=== PATIENT | male | born 1975 | race African-American/Black ===

== ENCOUNTER 2018-08-23 02:27 | Inpatient (IN) ==
[2018-08-23] MEDS ORDERED: SODIUM CHLORIDE 0.9% 1,000 ML IV STA (04:10)
[2018-08-23] MEDS ORDERED: HYDROmorphone 2 MG/1 ML VIAL IV STA ×2 (04:11→04:54)
[2018-08-23] MEDS ORDERED: PROMETHAZINE INJ 25 MG in SODIUM CHLORIDE 0.9% 50 ML IV STA (04:11)
[2018-08-23] MEDS ORDERED: HYDROmorphone 2 MG/1 ML VIAL ONE ×2 (04:16→04:56)
[2018-08-23] MEDS ORDERED: PROMETHAZINE 25 MG/1 ML VIAL ONE (04:16)
[2018-08-23 04:38] LABS: Basophils # 0.1 10*3/uL (0.0-0.2); Basophils % 0.3 % (0.0-0.8); Eosinophils # 0.2 10*3/uL (0.0-0.87); Hematocrit 19.6 VOL% (42.0-52.0); Hemoglobin 6.7 GM/DL (14.0-18.0); Immature Granulocytes % 0.6 %; Immature Granulocytes Absolute 0.12 #; Lymphocytes # 7.8 10*3/uL (1.4-4.0); Mean Corpuscular HGB Conc 34.2 GM/DL (32-36); Mean Corpuscular Hemoglobin 30 PG (27-34); Mean Corpuscular Volume 87.1 FL (87-102); Mean Platelet Volume 10.9 FL (9.6-12.0); Monocytes # 1.2 10*3/uL (0.11-0.8); Monocytes % 6.2 % (1.7-12.7); NRBC # 0.24 10*3/uL; Neutrophils # 10.6 10*3/uL (1.4-7.4); Neutrophils % 52.9 % (38.7-73.9); Platelet Count 233 T/CUMM (130-400); Red Blood Count 2.25 MC/CUMM (3.8-5.5); Red Cell Distribution Width 23.9 % (9.3-17.3)
[2018-08-23 04:56] LABS: Albumin 3.9 G/DL (3.4-5.0); Calcium 8.5 MG/DL (8.5-10.1); Potassium 3.8 MMOL/L (3.5-5.1); Total Protein 7.4 G/DL (6.4-8.3)
[2018-08-23] MEDS ORDERED: SODIUM CHLORIDE 0.9% 1,000 ML IV PRN (06:15)
[2018-08-23] MEDS ORDERED: HYDROmorphone 2 MG/1 ML VIAL IV PRN (06:20)
[2018-08-23] MEDS: FOLIC ACID 1 MG TABLET PO SCH (10:44)
[2018-08-23] MEDS: HYDROXYUREA 500 MG CAPSULE PO SCH ×2 (10:44→20:54)
[2018-08-23] MEDS: ONDANSETRON 4 MG/2 ML VIAL IV PRN ×3 (13:41→20:59)
[2018-08-23] MEDS: oxyCODONE ER 40 MG TABLET PO SCH (13:41)
[2018-08-23] MEDS: SODIUM CHLORIDE 0.45% 1,000 ML IV SCH (16:49)
[2018-08-23] MEDS: HYDROmorphone 2 MG/1 ML VIAL IV PRN ×2 (17:01→20:55)
[2018-08-23] MEDS: oxyCODONE/ACETAMINOPHEN 5-325 MG TABLET PO PRN (19:15)
[2018-08-24] MEDS: HYDROmorphone 2 MG/1 ML VIAL IV PRN ×6 (01:04→23:31)
[2018-08-24] MEDS: ONDANSETRON 4 MG/2 ML VIAL IV PRN ×4 (01:07→19:49)
[2018-08-24] MEDS: oxyCODONE ER 40 MG TABLET PO SCH ×2 (01:58→13:53)
[2018-08-24 04:35] LABS: Basophils # 0.1 10*3/uL (0.0-0.2); Basophils % 0.5 % (0.0-0.8); Eosinophils # 0.5 10*3/uL (0.0-0.87); Eosinophils % 2.5 % (0.00-10.9); Hematocrit 24.8 VOL% (42.0-52.0); Hemoglobin 8.3 GM/DL (14.0-18.0); Immature Granulocytes % 0.6 %; Immature Granulocytes Absolute 0.13 #; Lymphocytes # 11.4 10*3/uL (1.4-4.0); Lymphocytes % 52.1 % (21.2-54.2); Mean Corpuscular HGB Conc 33.5 GM/DL (32-36); Mean Corpuscular Hemoglobin 29 PG (27-34); Mean Corpuscular Volume 87.9 FL (87-102); Mean Platelet Volume 11.1 FL (9.6-12.0); Monocytes # 1.6 10*3/uL (0.11-0.8); Monocytes % 7.4 % (1.7-12.7); NRBC # 0.26 10*3/uL; Neutrophils # 8.1 10*3/uL (1.4-7.4); Neutrophils % 36.9 % (38.7-73.9); Platelet Count 216 T/CUMM (130-400); Red Blood Count 2.82 MC/CUMM (3.8-5.5); White Blood Count 21.9 T/CUMM (4-12)
[2018-08-24 04:59] LABS: Calcium 8.1 MG/DL (8.5-10.1); Osmolality,Calculated 280.3 MOS/KG (273-304); Potassium 4.2 MMOL/L (3.5-5.1)
[2018-08-24 05:09] LABS: Atypical Lymphocytes Few; Eosinophils 5 % (0-10); Lymphocytes 53 % (20-55); Nucleated Red Blood Cells 5 (0-5); Segmented Neutrophils 36 % (50-85); Total Cells Counted 100
[2018-08-24 05:10] LABS: Anisocytosis 1+; Hypochromasia 1+; Microcytosis 1+; Pappenheimer Bodies Few; Polychromasia Slight
[2018-08-24 05:11] LABS: Target Cells Slight
[2018-08-24 05:12] LABS: Ovalocytes Few; Platelet Estimate Normal; Sickle Cells Few
[2018-08-24] MEDS: SODIUM CHLORIDE 0.45% 1,000 ML IV SCH ×2 (05:34→19:46)
[2018-08-24] MEDS: HYDROXYUREA 500 MG CAPSULE PO SCH ×2 (10:56→20:13)
[2018-08-24] MEDS: FOLIC ACID 1 MG TABLET PO SCH (10:56)
[2018-08-24] MEDS: oxyCODONE/ACETAMINOPHEN 5-325 MG TABLET PO PRN (13:54)
[2018-08-24] MEDS: PROMETHAZINE INJ 12.5 MG in SODIUM CHLORIDE 0.9% 50 ML IV PRN ×2 (15:32→23:34)
[2018-08-25] MEDS: oxyCODONE ER 40 MG TABLET PO SCH ×2 (01:19→16:09)
[2018-08-25] MEDS: ONDANSETRON 4 MG/2 ML VIAL IV PRN ×3 (03:46→22:11)
[2018-08-25] MEDS: HYDROmorphone 2 MG/1 ML VIAL IV PRN ×5 (03:48→22:13)
[2018-08-25] MEDS: SODIUM CHLORIDE 0.45% 1,000 ML IV SCH (07:54)
[2018-08-25] MEDS: FOLIC ACID 1 MG TABLET PO SCH (10:23)
[2018-08-25] MEDS: PROMETHAZINE INJ 12.5 MG in SODIUM CHLORIDE 0.9% 50 ML IV PRN ×2 (10:23→17:44)
[2018-08-25] MEDS: HYDROXYUREA 500 MG CAPSULE PO SCH ×2 (10:23→20:07)
[2018-08-26] MEDS: ONDANSETRON 4 MG/2 ML VIAL IV PRN ×2 (03:15→16:20)
[2018-08-26] MEDS: HYDROmorphone 2 MG/1 ML VIAL IV PRN ×5 (03:16→20:34)
[2018-08-26] MEDS: oxyCODONE ER 40 MG TABLET PO SCH ×2 (03:18→15:09)
[2018-08-26 06:33] LABS: Basophils # 0.1 10*3/uL (0.0-0.2); Basophils % 0.4 % (0.0-0.8); Eosinophils # 0.9 10*3/uL (0.0-0.87); Eosinophils % 4.1 % (0.00-10.9); Hematocrit 22.5 VOL% (42.0-52.0); Hemoglobin 7.7 GM/DL (14.0-18.0); Immature Granulocytes % 0.6 %; Immature Granulocytes Absolute 0.13 #; Lymphocytes # 9.2 10*3/uL (1.4-4.0); Lymphocytes % 42.3 % (21.2-54.2); Mean Corpuscular HGB Conc 34.2 GM/DL (32-36); Mean Corpuscular Hemoglobin 30 PG (27-34); Mean Corpuscular Volume 88.2 FL (87-102); Mean Platelet Volume 12.2 FL (9.6-12.0); Monocytes # 1.5 10*3/uL (0.11-0.8); Monocytes % 7.1 % (1.7-12.7); NRBC # 0.25 10*3/uL; Neutrophils # 9.8 10*3/uL (1.4-7.4); Neutrophils % 45.5 % (38.7-73.9); Platelet Count 209 T/CUMM (130-400); Red Blood Count 2.55 MC/CUMM (3.8-5.5); White Blood Count 21.6 T/CUMM (4-12)
[2018-08-26 06:45] LABS: Albumin 3.3 G/DL (3.4-5.0); Bilirubin,Total 1.8 MG/DL (0.2-1.0); Osmolality,Calculated 281.1 MOS/KG (273-304); Potassium 5.1 MMOL/L (3.5-5.1); Total Protein 6.2 G/DL (6.4-8.3)
[2018-08-26 06:54] LABS: Band Neutrophils 1 % (0-10); Elliptocytes Few; Eosinophils 6 % (0-10); Hypochromasia 1+; Lymphocytes 36 % (20-55); Platelet Estimate Adequate; Segmented Neutrophils 49 % (50-85); Sickle Cells 1+; Total Cells Counted 100
[2018-08-26 06:55] LABS: Atypical Lymphocytes Few; Microcytosis Slight; Pappenheimer Bodies Few
[2018-08-26] MEDS: FOLIC ACID 1 MG TABLET PO SCH (09:23)
[2018-08-26] MEDS: HYDROXYUREA 500 MG CAPSULE PO SCH ×2 (09:23→20:37)
[2018-08-26] MEDS: PROMETHAZINE INJ 12.5 MG in SODIUM CHLORIDE 0.9% 50 ML IV PRN ×2 (09:59→19:56)
[2018-08-26] MEDS: SODIUM CHLORIDE 0.45% 1,000 ML IV SCH (15:11)
[2018-08-26] MEDS: oxyCODONE/ACETAMINOPHEN 5-325 MG TABLET PO PRN (19:25)
[2018-08-27] MEDS: oxyCODONE ER 40 MG TABLET PO SCH (01:07)
[2018-08-27] MEDS: ONDANSETRON 4 MG/2 ML VIAL IV PRN ×2 (01:08→06:43)
[2018-08-27] MEDS: HYDROmorphone 2 MG/1 ML VIAL IV PRN ×2 (01:10→06:41)
[2018-08-27] MEDS: oxyCODONE/ACETAMINOPHEN 5-325 MG TABLET PO PRN ×2 (03:55→09:23)
[2018-08-27] MEDS: SODIUM CHLORIDE 0.45% 1,000 ML IV SCH (03:56)
[2018-08-27] MEDS: PROMETHAZINE INJ 12.5 MG in SODIUM CHLORIDE 0.9% 50 ML IV PRN (03:57)
[2018-08-27 07:59] VITALS: BP 108/63
[2018-08-27] MEDS ORDERED: HEPARIN LOCK FLUSH 500 UNIT/5 ML SYRINGE IV ONE (09:18)
[2018-08-27] MEDS: FOLIC ACID 1 MG TABLET PO SCH (09:23)
[2018-08-27] MEDS: HYDROXYUREA 500 MG CAPSULE PO SCH (09:23)
== END 2018-08-27 09:50 | disposition home or self-care (01) | DRG 662 ==
LOC: N.ED 02:27 → N.EDINP 02:27 → SUATTDRO 06:07 → N.EDINP 08:15 → N.4E 08:24
PROVIDERS: ADMIT Internal Medicine; ATTEND Internal Medicine

== ENCOUNTER 2019-08-15 09:26 | Inpatient (IN) ==
[2019-08-15] MEDS ORDERED: ORPHENADRINE 60 MG/2 ML VIAL IV STA (09:43)
[2019-08-15] MEDS ORDERED: KETOROLAC 30 MG/1 ML VIAL IV STA (09:43)
[2019-08-15] MEDS ORDERED: SODIUM CHLORIDE 0.9% 1,000 ML IV STA (09:43)
[2019-08-15 10:46] LABS: Basophils # 0.1 10*3/uL (0.0-0.2); Basophils % 0.2 % (0.0-0.8); Eosinophils # 0.5 10*3/uL (0.0-0.87); Eosinophils % 1.9 % (0.00-10.9); Immature Granulocytes % 0.7 %; Immature Granulocytes Absolute 0.19 #; Lymphocytes # 9.4 10*3/uL (1.4-4.0); Mean Corpuscular HGB Conc 34.7 GM/DL (32-36); Mean Corpuscular Volume 90.1 FL (87-102); Mean Platelet Volume 11.1 FL (9.6-12.0); Monocytes % 6.2 % (1.7-12.7); Platelet Count 220 T/CUMM (130-400); Red Blood Count 1.92 MC/CUMM (3.8-5.5); Red Cell Distribution Width 24.2 % (9.3-17.3)
[2019-08-15 10:53] LABS: Hematocrit 17.3 VOL% (42.0-52.0)
[2019-08-15 10:56] LABS: INR 1.2; PT Patient Result 13.4 SECS (9.6-12.2); Partial Thromboplastin Time 30.5 SECS (20.8-36.0)
[2019-08-15 11:08] LABS: Eosinophils 1 % (0-10); Lymphocytes 40 % (20-55); Macrocytosis Slight; Nucleated Red Blood Cells 2 (0-5); Platelet Estimate Adequate; Polychromasia Slight; Segmented Neutrophils 56 % (50-85); Sickle Cells 2+; Total Cells Counted 100
[2019-08-15 11:09] LABS: Howell-Jolly Bodies Slight; Hypochromasia 1+; Pappenheimer Bodies Slight
[2019-08-15 11:12] LABS: Troponin I < 0.015 NG/ML (0.00-0.045)
[2019-08-15] MEDS ORDERED: MEPERIDINE 25 MG/1 ML VIAL IV STA (11:22)
[2019-08-15 11:24] LABS: Albumin 3.7 G/DL (3.4-5.0); Bilirubin,Total 3.6 MG/DL (0.2-1.0); Calcium 8.1 MG/DL (8.5-10.1); Osmolality,Calculated 279.4 MOS/KG (273-304); Total Protein 6.6 G/DL (6.4-8.3)
[2019-08-15 11:27] LABS: Apearance,Urine CLEAR (Clear); Bilirubin,Urine Negative (Negative); Blood, Urine Small mg/dL (Negative); Glucose,Urine (UA) Negative (Negative); Ketones,Urine Negative (Negative); Mucus,Urine Occasional /LPF (Occasional); Nitrite,Urine Negative (Negative); Protein,Urine Negative; RBC,Urine 1 /HPF (0-4); Urine Color Yellow (Yellow); Urine Specific Gravity 1.009 (1.001-1.035); WBC,Urine <1 /HPF (0-6)
[2019-08-15] MEDS ORDERED: SODIUM CHLORIDE 0.9% 1,000 ML IV PRN (11:40)
[2019-08-15 11:41] LABS: Barbiturates Screen,Urine Negative (Negative); Benzodiazepines Screen,Urine Negative (Negative); Cannabinoid Screen,Urine Negative (Negative); Opiate Screen,Urine Negative (Negative); Phencyclidine Screen,Urine Negative (Negative)
[2019-08-15] MEDS ORDERED: ACETAMINOPHEN 325 MG TABLET PO ONE (12:00)
[2019-08-15] MEDS ORDERED: diphenhydrAMINE 50 MG/1 ML VIAL IV ONE (12:00)
[2019-08-15] MEDS ORDERED: NALOXONE 0.4 MG/ML VIAL IV PRN (13:07)
[2019-08-15] MEDS: LEVOFLOXACIN INJ 500 MG in PREMIX 1 EACH IV SCH (13:28)
[2019-08-15] MEDS: SODIUM CHLORIDE 0.9% 1,000 ML IV SCH ×2 (13:28→20:57)
[2019-08-15] MEDS ORDERED: NICOTINE 21 MG/24 HR PATCH TRANSDERM PRN (13:37)
[2019-08-15] MEDS ORDERED: ENOXAPARIN 40 MG/0.4 ML SYRINGE SUBCUT SCH (14:00)
[2019-08-15] MEDS: PANTOPRAZOLE 40 MG TABLET PO SCH (14:58)
[2019-08-15] MEDS ORDERED: HYDROmorphone 2 MG/1 ML VIAL IV ONE (15:05)
[2019-08-15] MEDS ORDERED: KETOROLAC 30 MG/1 ML VIAL IV SCH (16:00)
[2019-08-15] MEDS: HYDROmorphone PCA 30 MG/30 ML SYRINGE IV SCH (20:48)
[2019-08-15] MEDS ORDERED: HYDROXYUREA 500 MG CAPSULE PO SCH (21:00)
[2019-08-15] MEDS ORDERED: oxyCODONE ER 40 MG TABLET PO SCH (21:00)
[2019-08-16] MEDS: SODIUM CHLORIDE 0.9% 1,000 ML IV SCH ×3 (05:20→21:13)
[2019-08-16 05:36] LABS: Basophils # 0.1 10*3/uL (0.0-0.2); Basophils % 0.3 % (0.0-0.8); Eosinophils # 0.5 10*3/uL (0.0-0.87); Eosinophils % 2.3 % (0.00-10.9); Hematocrit 22.3 VOL% (42.0-52.0); Hemoglobin 7.5 GM/DL (14.0-18.0); Immature Granulocytes % 0.7 %; Immature Granulocytes Absolute 0.15 #; Lymphocytes % 38.6 % (21.2-54.2); Mean Corpuscular HGB Conc 33.6 GM/DL (32-36); Mean Corpuscular Volume 89.9 FL (87-102); Mean Platelet Volume 11.4 FL (9.6-12.0); Monocytes % 7.3 % (1.7-12.7); NRBC # 0.41 10*3/uL; Neutrophils % 50.8 % (38.7-73.9); Platelet Count 179 T/CUMM (130-400); Red Blood Count 2.48 MC/CUMM (3.8-5.5); White Blood Count 20.8 T/CUMM (4-12)
[2019-08-16 05:41] LABS: Albumin 3.5 G/DL (3.4-5.0); Bilirubin,Total 2.8 MG/DL (0.2-1.0); Osmolality,Calculated 283.1 MOS/KG (273-304); Total Protein 6.5 G/DL (6.4-8.3)
[2019-08-16 05:56] LABS: Anisocytosis 1+; Hypochromasia 1+; Microcytosis 1+
[2019-08-16 05:57] LABS: Ovalocytes Few; Pappenheimer Bodies Few; Sickle Cells 2+
[2019-08-16 05:58] LABS: Howell-Jolly Bodies Slight; Platelet Estimate Adequate; Polychromasia Few
[2019-08-16 05:59] LABS: Target Cells Slight
[2019-08-16] MEDS ORDERED: MAGNESIUM SULF RIDER 2 GM in PREMIX 1 EACH IV ONE (08:00)
[2019-08-16 08:16] LABS: Hematocrit 19.9 VOL% (42.0-52.0)
[2019-08-16 08:19] LABS: Hemoglobin 6.6 GM/DL (14.0-18.0)
[2019-08-16] MEDS: FOLIC ACID 1 MG TABLET PO SCH (08:43)
[2019-08-16] MEDS: PANTOPRAZOLE 40 MG TABLET PO SCH (08:43)
[2019-08-16 09:14] LABS: Hemoglobin A1 (Alkaline) 29.3 % (96.5-98.5); Hemoglobin A2 (Alkaline) 3.4 % (1.5-3.5); Hemoglobin S (Alkaline) 67.3 %
[2019-08-16] MEDS: ONDANSETRON 4 MG/2 ML VIAL IV PRN ×2 (10:17→21:13)
[2019-08-16 13:02] LABS: Albumin 3.3 G/DL (3.4-5.0); Bilirubin,Direct 0.67 MG/DL (0.0-0.20); Bilirubin,Indirect 2.2 MG/DL (0.0-1.0); Bilirubin,Total 2.9 MG/DL (0.2-1.0); Total Protein 6.6 G/DL (6.4-8.3)
[2019-08-16 15:39] LABS: Hepatitis B Core IgM Quant 0.07 Index; Hepatitis B Surface Ag Quant < 0.10 Index; Hepatitis B Surface Ag Result Negative (Negative); Hepatitis C Virus Ab Quant 0.07 Index; Hepatitis C Virus Ab Result Negative (Negative)
[2019-08-16] MEDS: LEVOFLOXACIN INJ 500 MG in PREMIX 1 EACH IV SCH (16:12)
[2019-08-16 17:21] LABS: Hematocrit 28.7 VOL% (42.0-52.0); Hemoglobin 9.9 GM/DL (14.0-18.0)
[2019-08-17] MEDS: SODIUM CHLORIDE 0.9% 1,000 ML IV SCH ×2 (04:52→13:20)
[2019-08-17] MEDS: HYDROmorphone PCA 30 MG/30 ML SYRINGE IV SCH (04:53)
[2019-08-17 05:14] LABS: Basophils # 0.1 10*3/uL (0.0-0.2); Basophils % 0.4 % (0.0-0.8); Eosinophils # 0.8 10*3/uL (0.0-0.87); Eosinophils % 3.7 % (0.00-10.9); Hematocrit 27.6 VOL% (42.0-52.0); Hemoglobin 9.2 GM/DL (14.0-18.0); Immature Granulocytes % 0.6 %; Immature Granulocytes Absolute 0.13 #; Lymphocytes # 10.6 10*3/uL (1.4-4.0); Mean Corpuscular HGB Conc 33.3 GM/DL (32-36); Mean Corpuscular Volume 90.5 FL (87-102); Monocytes % 8.5 % (1.7-12.7); NRBC # 0.28 10*3/uL; Neutrophils % 35.8 % (38.7-73.9); Platelet Count 177 T/CUMM (130-400); Red Blood Count 3.05 MC/CUMM (3.8-5.5); Red Cell Distribution Width 19.7 % (9.3-17.3); White Blood Count 20.7 T/CUMM (4-12)
[2019-08-17 05:38] LABS: Albumin 3.4 G/DL (3.4-5.0); Atypical Lymphocytes Few; Band Neutrophils 1 % (0-10); Bilirubin,Total 2.6 MG/DL (0.2-1.0); Calcium 8.4 MG/DL (8.5-10.1); Eosinophils 2 % (0-10); Hypochromasia 1+; Lymphocytes 57 % (20-55); Microcytosis 1+; Nucleated Red Blood Cells 1 (0-5); Osmolality,Calculated 276.5 MOS/KG (273-304); Segmented Neutrophils 35 % (50-85); Total Cells Counted 100; Total Protein 6.7 G/DL (6.4-8.3)
[2019-08-17 05:39] LABS: Albumin 3.5 G/DL (3.4-5.0); Anisocytosis 1+; Bilirubin,Direct 0.65 MG/DL (0.0-0.20); Bilirubin,Indirect 1.9 MG/DL (0.0-1.0); Bilirubin,Total 2.5 MG/DL (0.2-1.0); Calcium 8.2 MG/DL (8.5-10.1); Osmolality,Calculated 278.4 MOS/KG (273-304); Ovalocytes Slight; Polychromasia Slight; Target Cells Slight; Total Protein 6.5 G/DL (6.4-8.3)
[2019-08-17 05:40] LABS: Howell-Jolly Bodies Slight; Pappenheimer Bodies Few; Platelet Estimate Adequate; Sickle Cells 2+
[2019-08-17] MEDS ORDERED: SODIUM POLYSTYRENE SULFATE 15 GM/60 ML BOTTLE PO ONE (07:18)
[2019-08-17] MEDS: FOLIC ACID 1 MG TABLET PO SCH (08:36)
[2019-08-17] MEDS: PANTOPRAZOLE 40 MG TABLET PO SCH (08:36)
[2019-08-17 11:21] VITALS: BP 118/79
[2019-08-17] MEDS: LEVOFLOXACIN INJ 500 MG in PREMIX 1 EACH IV SCH (11:32)
== END 2019-08-17 13:47 | disposition home or self-care (01) | DRG 662 ==
LOC: N.EDINP 09:26 → N.ED 09:26 → N.5E 13:10
PROVIDERS: ADMIT Internal Medicine; ATTEND Internal Medicine

== ENCOUNTER 2019-11-05 18:58 | Inpatient (IN) ==
[2019-11-05 20:05] LABS: Basophils # 0.1 10*3/uL (0.0-0.2); Basophils % 0.3 % (0.0-0.8); Eosinophils # 0.6 10*3/uL (0.0-0.87); Eosinophils % 2.1 % (0.00-10.9); Immature Granulocytes % 0.8 %; Immature Granulocytes Absolute 0.23 #; Lymphocytes # 10.3 10*3/uL (1.4-4.0); Lymphocytes % 35.1 % (21.2-54.2); Mean Corpuscular HGB Conc 34.8 GM/DL (32-36); Mean Corpuscular Volume 88.5 FL (87-102); Mean Platelet Volume 11.4 FL (9.6-12.0); Monocytes % 11.6 % (1.7-12.7); NRBC # 0.43 10*3/uL; Neutrophils % 50.1 % (38.7-73.9); Platelet Count 189 T/CUMM (130-400); Red Blood Count 1.82 MC/CUMM (3.8-5.5); Red Cell Distribution Width 24.3 % (9.3-17.3); White Blood Count 29.5 T/CUMM (4-12)
[2019-11-05 20:07] LABS: Hematocrit 16.1 VOL% (42.0-52.0); Hemoglobin 5.6 GM/DL (14.0-18.0)
[2019-11-05 20:21] LABS: Albumin 3.7 G/DL (3.4-5.0); Bilirubin,Total 3.7 MG/DL (0.2-1.0); Calcium 8.3 MG/DL (8.5-10.1); Osmolality,Calculated 278.7 MOS/KG (273-304); Total Protein 6.9 G/DL (6.4-8.3)
[2019-11-05 20:36] LABS: Anisocytosis Slight; Eosinophils 2 % (0-10); Lymphocytes 42 % (20-55); Microcytosis Slight; Nucleated Red Blood Cells 1 (0-5); Segmented Neutrophils 49 % (50-85); Total Cells Counted 100
[2019-11-05 20:37] LABS: Platelet Estimate Normal; Poikilocytosis 3+; Polychromasia 1+; Reactive Lymphocytes Slight; Schistocytes Few; Sickle Cells 3+; Target Cells Few
[2019-11-05] MEDS ORDERED: SODIUM CHLORIDE 0.9% 1,000 ML IV ONE (21:13)
[2019-11-05] MEDS ORDERED: SODIUM CHLORIDE 0.9% 1,000 ML IV PRN (21:15)
[2019-11-05] MEDS ORDERED: HYDROmorphone 2 MG/1 ML VIAL IV STA (21:17)
[2019-11-05] MEDS ORDERED: ALBUTEROL 2.5 MG/3 ML NEB RESP TX PRN (21:51)
[2019-11-05] MEDS ORDERED: diphenhydrAMINE CAP 25 MG CAPSULE PO PRN (21:51)
[2019-11-05] MEDS ORDERED: DEXTROSE 50% 25 GM/50 ML VIAL IV PRN (21:51)
[2019-11-05] MEDS ORDERED: NICOTINE 21 MG/24 HR PATCH TRANSDERM PRN (21:51)
[2019-11-05] MEDS ORDERED: hydrALAZINE 20 MG/1 ML VIAL IV PRN (21:51)
[2019-11-05] MEDS ORDERED: ACETAMINOPHEN 325 MG TABLET PO PRN (21:51)
[2019-11-05] MEDS ORDERED: ZALEPLON 5 MG CAPSULE PO PRN (21:51)
[2019-11-05] MEDS ORDERED: GLUCAGON 1 MG VIAL IM PRN (21:51)
[2019-11-05] MEDS ORDERED: guaiFENesin/DM ER 600-30 MG TABLET PO PRN (21:51)
[2019-11-05 23:51] LABS: Apearance,Urine CLEAR (Clear); Bilirubin,Urine Negative (Negative); Blood, Urine Moderate mg/dL (Negative); Glucose,Urine (UA) Negative (Negative); Hyaline Casts,Urine 12 /LPF (0-3); Ketones,Urine Negative (Negative); Mucus,Urine Occasional /LPF (Occasional); Nitrite,Urine Negative (Negative); Protein,Urine Negative; RBC,Urine 1 /HPF (0-4); Squamous Epithelial Cell,Urine Occasional /HPF (0-10); Urine Color Amber (Yellow); WBC,Urine <1 /HPF (0-6)
[2019-11-06] MEDS: HYDROmorphone 2 MG/1 ML VIAL IV PRN ×3 (00:38→08:20)
[2019-11-06] MEDS: SODIUM CHLORIDE 0.9% 1,000 ML IV SCH ×3 (00:38→18:44)
[2019-11-06] MEDS: ONDANSETRON 4 MG/2 ML VIAL IV PRN ×3 (00:38→22:57)
[2019-11-06] MEDS ORDERED: PNEUMOCOCCAL VACCINE (13 VALENT) 0.5 ML SYRINGE IM ONE (00:46)
[2019-11-06] MEDS: DOCUSATE SODIUM 100 MG CAPSULE PO SCH ×2 (08:21→20:46)
[2019-11-06] MEDS: PANTOPRAZOLE 40 MG TABLET PO SCH (08:21)
[2019-11-06 09:19] LABS: Basophils # 0.1 10*3/uL (0.0-0.2); Basophils % 0.3 % (0.0-0.8); Eosinophils # 0.6 10*3/uL (0.0-0.87); Eosinophils % 2.9 % (0.00-10.9); Hematocrit 19.2 VOL% (42.0-52.0); Hemoglobin 6.5 GM/DL (14.0-18.0); Immature Granulocytes % 0.6 %; Immature Granulocytes Absolute 0.12 #; Lymphocytes # 8.1 10*3/uL (1.4-4.0); Lymphocytes % 42.6 % (21.2-54.2); Mean Corpuscular HGB Conc 33.9 GM/DL (32-36); Mean Platelet Volume 11.4 FL (9.6-12.0); Monocytes % 10.5 % (1.7-12.7); NRBC # 0.31 10*3/uL; Neutrophils % 43.1 % (38.7-73.9); Platelet Count 138 T/CUMM (130-400); Red Blood Count 2.11 MC/CUMM (3.8-5.5); Red Cell Distribution Width 21.9 % (9.3-17.3); White Blood Count 18.9 T/CUMM (4-12)
[2019-11-06 09:23] LABS: Calcium 7.6 MG/DL (8.5-10.1); Osmolality,Calculated 279.5 MOS/KG (273-304)
[2019-11-06 09:26] LABS: Albumin 3.2 G/DL (3.4-5.0); Bilirubin,Direct 0.72 MG/DL (0.0-0.20); Bilirubin,Indirect 2.4 MG/DL (0.0-1.0); Bilirubin,Total 3.1 MG/DL (0.2-1.0); Total Protein 6.6 G/DL (6.4-8.3)
[2019-11-06] MEDS ORDERED: NALOXONE 0.4 MG/ML VIAL IV PRN (11:54)
[2019-11-06] MEDS ORDERED: ACETAMINOPHEN 325 MG TABLET PO PRN (11:58)
[2019-11-06] MEDS ORDERED: HYDROmorphone PCA 30 MG/30 ML SYRINGE IV SCH (12:00)
[2019-11-06] MEDS ORDERED: SODIUM CHLORIDE 0.9% 1,000 ML IV PRN (14:08)
[2019-11-06] MEDS ORDERED: NICOTINE 14 MG/24 HR PATCH TRANSDERM PRN (14:21)
[2019-11-07] MEDS: ONDANSETRON 4 MG/2 ML VIAL IV PRN ×4 (04:19→20:55)
[2019-11-07 06:04] LABS: Basophils # 0.1 10*3/uL (0.0-0.2); Basophils % 0.4 % (0.0-0.8); Eosinophils # 0.7 10*3/uL (0.0-0.87); Eosinophils % 3.3 % (0.00-10.9); Hematocrit 26.8 VOL% (42.0-52.0); Immature Granulocytes % 0.6 %; Immature Granulocytes Absolute 0.13 #; Lymphocytes # 9.2 10*3/uL (1.4-4.0); Lymphocytes % 42.6 % (21.2-54.2); Mean Corpuscular HGB Conc 34.7 GM/DL (32-36); Mean Corpuscular Volume 90.2 FL (87-102); Monocytes % 10.5 % (1.7-12.7); NRBC # 0.27 10*3/uL; Neutrophils % 42.6 % (38.7-73.9); Platelet Count 166 T/CUMM (130-400); Red Blood Count 2.97 MC/CUMM (3.8-5.5); Red Cell Distribution Width 20.2 % (9.3-17.3); White Blood Count 21.6 T/CUMM (4-12)
[2019-11-07 06:08] LABS: Hemoglobin 9.3 GM/DL (14.0-18.0)
[2019-11-07 06:29] LABS: Hypochromasia 1+; Platelet Estimate Adequate; Sickle Cells 1+
[2019-11-07 06:30] LABS: Howell-Jolly Bodies Slight; Macrocytosis Slight; Pappenheimer Bodies Slight; Polychromasia Slight
[2019-11-07 06:54] LABS: Calcium 8.7 MG/DL (8.5-10.1); Osmolality,Calculated 275.7 MOS/KG (273-304)
[2019-11-07] MEDS: DOCUSATE SODIUM 100 MG CAPSULE PO SCH ×2 (08:19→20:29)
[2019-11-07] MEDS: PANTOPRAZOLE 40 MG TABLET PO SCH (08:19)
[2019-11-07] MEDS: SODIUM CHLORIDE 0.9% 1,000 ML IV SCH ×2 (08:20→17:47)
[2019-11-07] MEDS ORDERED: SODIUM POLYSTYRENE SULFATE 15 GM/60 ML BOTTLE PO STA (08:50)
[2019-11-07] MEDS: PROMETHAZINE 25 MG/1 ML VIAL IM PRN ×2 (11:28→22:43)
[2019-11-07] MEDS ORDERED: HYDROmorphone PCA 30 MG/30 ML SYRINGE IV SCH (12:00)
[2019-11-08] MEDS: SODIUM CHLORIDE 0.9% 1,000 ML IV SCH ×3 (03:46→20:21)
[2019-11-08 07:15] LABS: Basophils # 0.1 10*3/uL (0.0-0.2); Basophils % 0.3 % (0.0-0.8); Eosinophils # 0.9 10*3/uL (0.0-0.87); Eosinophils % 4.3 % (0.00-10.9); Hematocrit 26.2 VOL% (42.0-52.0); Hemoglobin 8.8 GM/DL (14.0-18.0); Immature Granulocytes % 0.6 %; Immature Granulocytes Absolute 0.12 #; Lymphocytes # 7.9 10*3/uL (1.4-4.0); Lymphocytes % 38.3 % (21.2-54.2); Mean Corpuscular HGB Conc 33.6 GM/DL (32-36); Mean Corpuscular Volume 91.3 FL (87-102); Mean Platelet Volume 11.5 FL (9.6-12.0); Monocytes % 10.2 % (1.7-12.7); NRBC # 0.15 10*3/uL; Neutrophils % 46.3 % (38.7-73.9); Platelet Count 150 T/CUMM (130-400); Red Blood Count 2.87 MC/CUMM (3.8-5.5); Red Cell Distribution Width 20.8 % (9.3-17.3); White Blood Count 20.6 T/CUMM (4-12)
[2019-11-08 07:26] LABS: Calcium 8.4 MG/DL (8.5-10.1); Osmolality,Calculated 277.5 MOS/KG (273-304)
[2019-11-08 07:56] LABS: Anisocytosis 2+; Eosinophils 5 % (0-10); Lymphocytes 37 % (20-55); Nucleated Red Blood Cells 2 (0-5); Platelet Estimate Normal; Poikilocytosis 2+; Segmented Neutrophils 46 % (50-85); Sickle Cells 2+; Total Cells Counted 100
[2019-11-08 07:57] LABS: Target Cells Few
[2019-11-08] MEDS ORDERED: SODIUM POLYSTYRENE SULFATE 15 GM/60 ML BOTTLE PO STA (08:09)
[2019-11-08] MEDS: PANTOPRAZOLE 40 MG TABLET PO SCH (09:09)
[2019-11-08] MEDS: DOCUSATE SODIUM 100 MG CAPSULE PO SCH ×2 (09:09→20:33)
[2019-11-08] MEDS: ONDANSETRON 4 MG/2 ML VIAL IV PRN ×3 (10:26→20:21)
[2019-11-08] MEDS: PROMETHAZINE 25 MG/1 ML VIAL IM PRN (14:29)
[2019-11-09] MEDS: ONDANSETRON 4 MG/2 ML VIAL IV PRN (02:37)
[2019-11-09 07:19] LABS: Calcium 8.1 MG/DL (8.5-10.1); Osmolality,Calculated 280.3 MOS/KG (273-304)
[2019-11-09] MEDS: SODIUM CHLORIDE 0.9% 1,000 ML IV SCH (08:04)
[2019-11-09] MEDS ORDERED: SODIUM POLYSTYRENE SULFATE 15 GM/60 ML BOTTLE PO ONE (08:16)
[2019-11-09] MEDS ORDERED: MAGNESIUM SULF RIDER 4 GM in PREMIX 1 EACH IV ONE (09:07)
[2019-11-09] MEDS: PANTOPRAZOLE 40 MG TABLET PO SCH (10:07)
[2019-11-09] MEDS: DOCUSATE SODIUM 100 MG CAPSULE PO SCH (10:07)
[2019-11-09 13:03] VITALS: BP 122/62
== END 2019-11-09 15:45 | disposition home or self-care (01) | DRG 662 ==
LOC: N.ED 18:58 → N.EDINP 21:51 → SUATTDRO 21:51 → N.3E 22:49
PROVIDERS: ADMIT Internal Medicine; ATTEND Family Medicine

== ENCOUNTER 2019-12-19 04:34 | Inpatient (IN) ==
[2019-12-19] MEDS ORDERED: ONDANSETRON 4 MG/2 ML VIAL IV ONE (05:20)
[2019-12-19] MEDS ORDERED: HYDROmorphone 2 MG/1 ML VIAL IV STA (05:20)
[2019-12-19 05:41] LABS: Basophils # 0.1 10*3/uL (0.0-0.2); Basophils % 0.5 % (0.0-0.8); Eosinophils # 0.8 10*3/uL (0.0-0.87); Eosinophils % 3.5 % (0.00-10.9); Hematocrit 18.6 VOL% (42.0-52.0); Immature Granulocytes % 0.5 %; Immature Granulocytes Absolute 0.12 #; Lymphocytes # 10.8 10*3/uL (1.4-4.0); Lymphocytes % 46.7 % (21.2-54.2); Mean Corpuscular HGB Conc 33.3 GM/DL (32-36); Mean Corpuscular Volume 91.2 FL (87-102); Mean Platelet Volume 10.8 FL (9.6-12.0); Monocytes % 7.4 % (1.7-12.7); NRBC # 0.17 10*3/uL; Neutrophils % 41.4 % (38.7-73.9); Platelet Count 222 T/CUMM (130-400); Red Blood Count 2.04 MC/CUMM (3.8-5.5); Red Cell Distribution Width 18.8 % (9.3-17.3); White Blood Count 23.2 T/CUMM (4-12)
[2019-12-19 05:47] LABS: Hemoglobin 6.2 GM/DL (14.0-18.0)
[2019-12-19 05:54] LABS: Albumin 3.5 G/DL (3.4-5.0); Bilirubin,Total 2.3 MG/DL (0.2-1.0); Calcium 8.5 MG/DL (8.5-10.1); Osmolality,Calculated 277.7 MOS/KG (273-304); Total Protein 6.9 G/DL (6.4-8.3)
[2019-12-19 06:52] LABS: Apearance,Urine CLEAR (Clear); Bilirubin,Urine Negative (Negative); Blood, Urine Small mg/dL (Negative); Glucose,Urine (UA) Negative (Negative); Ketones,Urine Negative (Negative); Mucus,Urine Occasional /LPF (Occasional); Nitrite,Urine Negative (Negative); Protein,Urine Negative; RBC,Urine <1 /HPF (0-4); Urine Color Yellow (Yellow); Urine Specific Gravity 1.009 (1.001-1.035); WBC,Urine <1 /HPF (0-6)
[2019-12-19 07:25] LABS: Eosinophils 1 % (0-10); Lymphocytes 40 % (20-55); Segmented Neutrophils 55 % (50-85); Total Cells Counted 100
[2019-12-19 07:26] LABS: Platelet Estimate Normal
[2019-12-19 07:27] LABS: Acanthocytes 2+; Anisocytosis 2+; Hypochromasia 3+; Macrocytosis 2+; Microcytosis 1+; Ovalocytes 2+
[2019-12-19 07:28] LABS: Target Cells 1+
[2019-12-19] MEDS ORDERED: GLUCAGON 1 MG VIAL IM PRN (08:38)
[2019-12-19] MEDS ORDERED: DEXTROSE 10% 250 ML BAG IV PRN (08:38)
[2019-12-19] MEDS ORDERED: SODIUM CHLORIDE 0.9% 1,000 ML IV PRN (09:12)
[2019-12-19] MEDS: SODIUM CHLORIDE 0.45% 1,000 ML IV SCH ×2 (11:07→17:13)
[2019-12-19] MEDS: HYDROmorphone 2 MG/1 ML VIAL IV PRN ×3 (11:20→19:23)
[2019-12-19] MEDS: NICOTINE 21 MG/24 HR PATCH TRANSDERM SCH (11:48)
[2019-12-19 19:07] LABS: Hematocrit 24.5 VOL% (42.0-52.0)
[2019-12-19] MEDS: ONDANSETRON 4 MG/2 ML VIAL IV PRN (19:24)
[2019-12-20] MEDS: SODIUM CHLORIDE 0.45% 1,000 ML IV SCH ×4 (00:32→23:10)
[2019-12-20] MEDS: HYDROmorphone 2 MG/1 ML VIAL IV PRN ×3 (00:34→08:38)
[2019-12-20 07:01] LABS: Basophils # 0.1 10*3/uL (0.0-0.2); Basophils % 0.4 % (0.0-0.8); Eosinophils # 0.7 10*3/uL (0.0-0.87); Eosinophils % 3.2 % (0.00-10.9); Hematocrit 24.1 VOL% (42.0-52.0); Immature Granulocytes % 0.4 %; Immature Granulocytes Absolute 0.09 #; Lymphocytes # 11.6 10*3/uL (1.4-4.0); Lymphocytes % 51.8 % (21.2-54.2); Mean Corpuscular HGB Conc 33.2 GM/DL (32-36); Mean Corpuscular Volume 92.3 FL (87-102); Mean Platelet Volume 11.5 FL (9.6-12.0); Monocytes % 6.4 % (1.7-12.7); NRBC # 0.13 10*3/uL; Neutrophils % 37.8 % (38.7-73.9); Platelet Count 188 T/CUMM (130-400); Red Cell Distribution Width 17.7 % (9.3-17.3); White Blood Count 22.4 T/CUMM (4-12)
[2019-12-20 07:20] LABS: Red Blood Count 2.61 MC/CUMM (3.8-5.5)
[2019-12-20 07:27] LABS: Calcium 8.5 MG/DL (8.5-10.1)
[2019-12-20 07:49] LABS: Albumin 3.3 G/DL (3.4-5.0); Bilirubin,Direct 0.48 MG/DL (0.0-0.20); Bilirubin,Indirect 1.8 MG/DL (0.0-1.0); Bilirubin,Total 2.3 MG/DL (0.2-1.0); Total Protein 6.6 G/DL (6.4-8.3)
[2019-12-20 07:50] LABS: Band Neutrophils 2 % (0-10); Eosinophils 1 % (0-10); Lymphocytes 58 % (20-55); Nucleated Red Blood Cells 2 (0-5); Segmented Neutrophils 32 % (50-85); Total Cells Counted 100
[2019-12-20 07:51] LABS: Anisocytosis 2+; Ovalocytes Few; Platelet Estimate Normal; Poikilocytosis 1+
[2019-12-20 07:52] LABS: Polychromasia Slight
[2019-12-20 07:53] LABS: Macrocytosis Slight
[2019-12-20] MEDS: ONDANSETRON 4 MG/2 ML VIAL IV PRN ×2 (08:38→19:27)
[2019-12-20] MEDS: NICOTINE 21 MG/24 HR PATCH TRANSDERM SCH (08:38)
[2019-12-20] MEDS ORDERED: NON-FORMULARY MEDICATION (Oxycodone-Acetaminophen 1 TABLET) PO PRN (10:10)
[2019-12-20] MEDS ORDERED: SODIUM CHLORIDE 0.9% 1,000 ML IV PRN (10:11)
[2019-12-20] MEDS ORDERED: NALOXONE 0.4 MG/ML VIAL IV PRN (10:11)
[2019-12-20] MEDS ORDERED: OXYCODONE 80 MG PO SCH (10:15)
[2019-12-20] MEDS ORDERED: HYDROmorphone 2 MG/1 ML VIAL IV ONE (10:20)
[2019-12-20] MEDS ORDERED: HYDROmorphone PCA 30 MG/30 ML SYRINGE IV SCH (10:30)
[2019-12-20] MEDS: LEVOFLOXACIN 750 MG TABLET PO SCH (10:57)
[2019-12-21] MEDS: ONDANSETRON 4 MG/2 ML VIAL IV PRN (03:27)
[2019-12-21] MEDS: SODIUM CHLORIDE 0.45% 1,000 ML IV SCH ×2 (07:11→09:12)
[2019-12-21 07:16] LABS: Hematocrit 24.3 VOL% (42.0-52.0); Hemoglobin 8.2 GM/DL (14.0-18.0)
[2019-12-21 07:28] LABS: Basophils # 0.1 10*3/uL (0.0-0.2); Basophils % 0.5 % (0.0-0.8); Eosinophils % 4.1 % (0.00-10.9); Hematocrit 24.8 VOL% (42.0-52.0); Hemoglobin 8.3 GM/DL (14.0-18.0); Immature Granulocytes % 0.4 %; Immature Granulocytes Absolute 0.09 #; Lymphocytes # 12.7 10*3/uL (1.4-4.0); Lymphocytes % 53.8 % (21.2-54.2); Mean Corpuscular HGB Conc 33.5 GM/DL (32-36); Mean Corpuscular Volume 92.2 FL (87-102); Mean Platelet Volume 11.3 FL (9.6-12.0); Monocytes % 6.8 % (1.7-12.7); NRBC # 0.16 10*3/uL; Neutrophils % 34.4 % (38.7-73.9); Platelet Count 203 T/CUMM (130-400); Red Blood Count 2.69 MC/CUMM (3.8-5.5); Red Cell Distribution Width 17.8 % (9.3-17.3); White Blood Count 23.6 T/CUMM (4-12)
[2019-12-21 07:46] LABS: Eosinophils 4 % (0-10); Hypochromasia 1+; Lymphocytes 57 % (20-55); Microcytosis 1+; Ovalocytes Slight; Platelet Estimate Adequate; Segmented Neutrophils 34 % (50-85); Sickle Cells Few; Total Cells Counted 100
[2019-12-21] MEDS ORDERED: DEFERASIROX PO SCH (08:00)
[2019-12-21] MEDS ORDERED: FOLIC ACID 1 MG TABLET PO SCH (09:00)
[2019-12-21] MEDS: NICOTINE 21 MG/24 HR PATCH TRANSDERM SCH (09:14)
[2019-12-21] MEDS ORDERED: HYDROmorphone PCA 30 MG/30 ML SYRINGE IV SCH (10:30)
[2019-12-21] MEDS ORDERED: MAGNESIUM OXIDE 400 MG TABLET PO ONE (10:45)
[2019-12-21] MEDS: LEVOFLOXACIN 750 MG TABLET PO SCH (11:29)
[2019-12-21 11:33] VITALS: BP 111/65
[2019-12-22] MEDS ORDERED: oxyCODONE ER 20 MG TABLET PO SCH (09:00)
[2019-12-22] MEDS ORDERED: oxyCODONE/ACETAMINOPHEN 5-325 MG TABLET PO PRN (09:00)
== END 2019-12-21 13:30 | disposition home or self-care (01) | DRG 662 ==
LOC: N.ED 04:34 → N.EDINP 08:38 → SUATTDRO 08:38 → N.3E 09:04
PROVIDERS: ADMIT Internal Medicine; ATTEND Internal Medicine

== ENCOUNTER 2020-02-11 16:40 | Observation (INO) ==
[2020-02-11] MEDS ORDERED: SODIUM CHLORIDE 0.9% 1,000 ML IV STA (18:25)
[2020-02-11 18:46] LABS: Basophils # 0.1 10*3/uL (0.0-0.2); Basophils % 0.4 % (0.0-0.8); Eosinophils # 0.5 10*3/uL (0.0-0.87); Eosinophils % 1.9 % (0.00-10.9); Hematocrit 18.5 VOL% (42.0-52.0); Immature Granulocytes % 0.6 %; Immature Granulocytes Absolute 0.16 #; Lymphocytes % 51.2 % (21.2-54.2); Mean Corpuscular HGB Conc 33.5 GM/DL (32-36); Mean Corpuscular Volume 89.4 FL (87-102); Mean Platelet Volume 11.8 FL (9.6-12.0); Monocytes % 7.1 % (1.7-12.7); NRBC # 0.37 10*3/uL; Neutrophils % 38.8 % (38.7-73.9); Platelet Count 191 T/CUMM (130-400); Red Blood Count 2.07 MC/CUMM (3.8-5.5); Red Cell Distribution Width 21.3 % (9.3-17.3); White Blood Count 27.3 T/CUMM (4-12)
[2020-02-11 18:50] LABS: Hemoglobin 6.2 GM/DL (14.0-18.0)
[2020-02-11 19:04] LABS: Albumin 3.8 G/DL (3.4-5.0); Bilirubin,Total 2.7 MG/DL (0.2-1.0); Calcium 8.7 MG/DL (8.5-10.1); Ferritin 6781.4 ng/ml (26-388); Total Protein 7.5 G/DL (6.4-8.3)
[2020-02-11] MEDS ORDERED: ONDANSETRON 4 MG/2 ML VIAL IV ONE (19:08)
[2020-02-11] MEDS ORDERED: fentaNYL 100 MCG/2 ML VIAL IV STA (19:08)
[2020-02-11 19:17] LABS: Anisocytosis 1+; Lymphocytes 46 % (20-55); Macrocytosis 1+; Microcytosis 1+; Nucleated Red Blood Cells 1 (0-5); Platelet Estimate Normal; Poikilocytosis 2+; Polychromasia 1+; Segmented Neutrophils 50 % (50-85); Sickle Cells 2+; Total Cells Counted 100
[2020-02-11] MEDS ORDERED: NALOXONE 0.4 MG/ML VIAL IV PRN (19:23)
[2020-02-11] MEDS ORDERED: SODIUM CHLORIDE 0.9% 1,000 ML IV PRN (19:23)
[2020-02-11] MEDS ORDERED: GLUCAGON 1 MG VIAL IM PRN (19:24)
[2020-02-11] MEDS ORDERED: DEXTROSE 50% 25 GM/50 ML VIAL IV PRN (19:24)
[2020-02-11] MEDS ORDERED: HYDROmorphone 2 MG/1 ML VIAL ONE (19:26)
[2020-02-11] MEDS ORDERED: HYDROmorphone 2 MG/1 ML VIAL IV STA (19:34)
[2020-02-11 19:45] LABS: Bilirubin,Urine Negative (Negative); Blood, Urine Small mg/dL (Negative); Glucose,Urine (UA) Negative (Negative); Hyaline Casts,Urine 10 /LPF (0-3); Ketones,Urine Negative (Negative); Mucus,Urine Occasional /LPF (Occasional); Nitrite,Urine Negative (Negative); Protein,Urine Negative; RBC,Urine 2 /HPF (0-4); Squamous Epithelial Cell,Urine Occasional /HPF (0-10); Urine Appearance CLEAR (Clear); Urine Color Amber (Yellow); Urine Specific Gravity 1.012 (1.001-1.035); WBC,Urine 2 /HPF (0-6)
[2020-02-11] MEDS ORDERED: AZITHROMYCIN INJ 500 MG in SODIUM CHLORIDE 0.9% 250 ML IV ONE (20:16)
[2020-02-11] MEDS ORDERED: LEVOFLOXACIN INJ 150 ML IV ONE (21:27)
[2020-02-11] MEDS: LEVOFLOXACIN INJ 750 MG in PREMIX 1 EACH IV SCH (21:43)
[2020-02-11] MEDS: SODIUM CHLORIDE 0.45% 1,000 ML IV SCH (21:43)
[2020-02-11] MEDS ORDERED: HYDROmorphone PCA 30 MG/30 ML SYRINGE IV SCH (22:00)
[2020-02-12 05:41] LABS: Basophils # 0.1 10*3/uL (0.0-0.2); Basophils % 0.3 % (0.0-0.8); Eosinophils # 0.7 10*3/uL (0.0-0.87); Eosinophils % 2.7 % (0.00-10.9); Immature Granulocytes % 0.5 %; Immature Granulocytes Absolute 0.14 #; Lymphocytes # 14.9 10*3/uL (1.4-4.0); Lymphocytes % 55.2 % (21.2-54.2); Mean Corpuscular HGB Conc 34.4 GM/DL (32-36); Mean Corpuscular Volume 89.3 FL (87-102); Monocytes % 7.7 % (1.7-12.7); NRBC # 0.27 10*3/uL; Neutrophils % 33.6 % (38.7-73.9); Platelet Count 176 T/CUMM (130-400); Red Blood Count 1.69 MC/CUMM (3.8-5.5); Red Cell Distribution Width 20.6 % (9.3-17.3); White Blood Count 26.9 T/CUMM (4-12)
[2020-02-12 06:01] LABS: Calcium 8.4 MG/DL (8.5-10.1); Osmolality,Calculated 278.5 MOS/KG (273-304)
[2020-02-12 06:08] LABS: Hematocrit 15.1 VOL% (42.0-52.0); Hemoglobin 5.2 GM/DL (14.0-18.0)
[2020-02-12] MEDS ORDERED: SODIUM CHLORIDE 0.9% 1,000 ML IV PRN (06:11)
[2020-02-12 06:39] LABS: Band Neutrophils 1 % (0-10); Eosinophils 5 % (0-10); Lymphocytes 59 % (20-55); Nucleated Red Blood Cells 4 (0-5); Segmented Neutrophils 31 % (50-85); Total Cells Counted 100
[2020-02-12 06:40] LABS: Anisocytosis 1+; Hypochromasia 1+; Microcytosis 1+; Ovalocytes Few; Sickle Cells 1+
[2020-02-12 06:41] LABS: Howell-Jolly Bodies Slight; Pappenheimer Bodies Slight; Polychromasia Slight; Smudge Cells Few; Target Cells Slight
[2020-02-12] MEDS: SODIUM CHLORIDE 0.45% 1,000 ML IV SCH ×2 (06:44→14:44)
[2020-02-12] MEDS ORDERED: ENOXAPARIN 40 MG/0.4 ML SYRINGE SUBCUT SCH (09:00)
[2020-02-12] MEDS ORDERED: PANTOPRAZOLE 40 MG TABLET PO SCH (09:00)
[2020-02-12] MEDS ORDERED: FOLIC ACID 0.4 MG TABLET PO SCH (09:00)
[2020-02-12] MEDS: LEVOFLOXACIN INJ 750 MG in PREMIX 1 EACH IV SCH (21:00)
[2020-02-12 21:35] VITALS: BP 109/52
[2020-02-12] MEDS ORDERED: HYDROmorphone PCA 30 MG/30 ML SYRINGE IV SCH (22:00)
== END 2020-02-12 21:38 | disposition left against medical advice (07) ==
LOC: N.ED 16:40 → MERGE 19:24 → N.EDINP 19:24 → INTOOBSV 19:24 → N.4E 21:35
PROVIDERS: ADMIT Internal Medicine; ATTEND Internal Medicine